=== PATIENT | male | born 1960 | race Caucasian/White ===

== ENCOUNTER 2022-04-03 07:20 | Day surgery (SDC) | payer OTHER, BC ==
[2022-04-02 07:45] VITALS: BMI 26.2
[2022-04-03] MEDS ORDERED: DEXAMETHASONE SOD PHOSPHATE/PF 10 MG/ML SDV ONE (09:08)
[2022-04-03] MEDS ORDERED: ROPIVACAINE HCL 0.5% 30ML VIAL ONE (09:08)
[2022-04-03] MEDS ORDERED: MIDAZOLAM HCL 2 MG/2 ML SINGLE DOSE VIAL ONE (09:12)
[2022-04-03] MEDS ORDERED: ceFAZolin SODIUM 1 GM VIAL ONE (09:55)
[2022-04-03] MEDS ORDERED: PROPOFOL 20 ML ONE (09:57)
[2022-04-03] MEDS ORDERED: DEXAMETHASONE SOD PHOSPHATE 4 MG/1 ML VIAL ONE (10:10)
[2022-04-03] MEDS ORDERED: ONDANSETRON 4 MG/2 ML VIAL ONE (10:10)
[2022-04-03] MEDS ORDERED: ONDANSETRON 4 MG/2 ML VIAL IVPUSH PRN (10:34)
[2022-04-03] MEDS ORDERED: LACTATED RINGERS SOLUTION 1,000 ML IV SCH (10:45)
[2022-04-03] MEDS ORDERED: FENTANYL CITRATE/PF 50 MCG/ML VIAL ONE (11:01)
[2022-04-03] MEDS ORDERED: oxyCODONE HCL 5 MG TABLET PO ONE (11:37)
[2022-04-03 14:30] VITALS: RESP 16; TEMP 97.6
[2022-04-03 14:38] VITALS: BP 159/95; PULSE 78
== END 2022-04-03 12:10 | disposition home or self-care (01) ==
LOC: FASU 07:20
PROVIDERS: ATTEND Orthopaedic Surgery
PROC: 0RBK4ZZ Excision of Left Shoulder Joint, Percutaneous Endoscopic Approach (ICD-10-PCS; principal; 2022-04-03 10:11)
DX: M75.42 Impingement syndrome of left shoulder (principal); M65.812 Other synovitis and tenosynovitis, left shoulder; S43.432A Superior glenoid labrum lesion of left shoulder, initial encounter; X58.XXXA Exposure to other specified factors, initial encounter; Y93.9 Activity, unspecified; Y92.9 Unspecified place or not applicable
CPT/HCPCS: 94760; C1889